=== PATIENT | male | born 1980 | race Caucasian/White ===

== ENCOUNTER 2022-01-03 21:13 | Emergency (ER) | payer OTHER ==
[~2022-01-03] VITALS: Ht 167.6 cm; Wt 80.0 kg
[2022-01-03 21:23] VITALS: BP 129/84
--- NOTE | 2022-01-03 21:56 | PHYS DOC ---
Past History Past Surgical History: No Surgical History General Adult EDM: Chief Complaint: BACK PAIN OR INJURY HPI: HPI: 41-year-old male presents with low back pain. The patient was lifting some light 15 pound weights for his workout today and he started to feel a tweak in his low back. He had increasing pain over the next few hours. It is now moderate to severe tightness and cramping in the low back. He has had problems with low back and hip pain with muscle spasms in the past. He tried diclofenac gel and methocarbamol at home without relief. He recently started physical therapy. Review of Systems: Review of Systems: Constitutional: Denies fever or chills Eyes: Denies change in visual acuity HENT: Denies nasal congestion or sore throat Respiratory: Denies cough or shortness of breath Cardiovascular: Denies chest pain or edema GI: Denies abdominal pain, nausea, vomiting, bloody stools or diarrhea : Denies dysuria Musculoskeletal: Low back pain Integument: Denies rash Neurologic: Denies headache, focal weakness or sensory changes Endocrine: Denies polyuria or polydipsia Lymphatic: Denies swollen glands Psychiatric: Denies depression or anxiety Current Medications: Current Meds: Current Medications Medications (Trade) Dose Ordered Sig/Francisco J Start Time Stop Time Status Last Admin Dose Admin Acetaminophen/ Hydrocodone Bitart (Lortab 7.5/325) 1 tab 1X ONCE 01/03/22 22:30 01/03/22 22:31 Allergies: Allergies: Allergies Coded Allergies Type Severity Reaction Last Updated Verified No Known Drug Allergies 01/03/22 No Physical Exam: PE: Constitutional: Well developed, well nourished, no acute distress, non-toxic appearance. [] HENT: Normocephalic, atraumatic, bilateral external ears normal, oropharynx moist, no oral exudates, nose normal. [] Eyes: PERRLA, EOMI, conjunctiva normal, no discharge. [] Neck: Normal range of motion, no tenderness, supple, no stridor. [] Cardiovascular:Heart rate regular rhythm, no murmur [] Lungs & Thorax: Bilateral breath sounds clear to auscultation [] Abdomen: Bowel sounds normal, soft, no tenderness, no masses, no pulsatile masses. [] Skin: Warm, dry, no erythema, no rash. [] Back: Lumbar paraspinal muscle spasms, tenderness on the right posterior lateral hip [] Extremities: No tenderness, no cyanosis, no clubbing, ROM intact, no edema. [] Neurologic: Alert and oriented X 3, normal motor function, normal sensory function, no focal deficits noted. [] Psychologic: Affect normal, judgement normal, mood normal. [] Current Patient Data: Vital Signs: Vital Signs Date Time Temp Pulse Resp B/P (MAP) Pulse Ox O2 Delivery O2 Flow Rate FiO2 01/03/22 21:23 79 20 129/84 (99) 98 Room Air EKG: EKG: [] Radiology/Procedures: Radiology/Procedures: [] Heart Score: C/O Chest Pain: N/A Risk Factors: Risk Factors: DM, Current or recent (<one month) smoker, HTN, HLP, family history of CAD, obesity. Risk Scores: Score 0 - 3: 2.5% MACE over next 6 weeks - Discharge Home Score 4 - 6: 20.3% MACE over next 6 weeks - Admit for Clinical Observation Score 7 - 10: 72.7% MACE over next 6 weeks - Early Invasive Strategies Course & Med Decision Making: Course & Med Decision Making Pertinent Labs and Imaging studies reviewed. (See chart for details) I have given patient Colon for his pain emergency room. His pain has improved and he is more mobile. I have advised that he continue to take his muscle r elaxer at home. I will give him a short course of Colon for home. He is stable for discharge at this time. [] Dragon Disclaimer: Fernando Disclaimer: This electronic medical record was generated, in whole or in part, using a voice recognition dictation system. Departure Departure: Impression: Primary Impression: Low back pain Disposition: HOME / SELF CARE / HOMELESS Condition: STABLE Referrals: NON,STAFF (PCP) Patient Instructions: Low Back Strain with Rehab-[facility] Scripts Hydrocodone/Acetaminophen (Hydrocodone-Acetamin 5-325 mg) 1 Each Tablet 1 EACH PO Q4-6HRS PRN for PAIN, #10 TAB Prov: ARMANDO CARBONE DO 01/03/22 ARMANDO CARBONE DO Jan 03, 2022 21:56
[2022-01-03] MEDS ORDERED: HYDROcodone/APAP 7.5/325MG 1 TAB TABLET PO ONE (22:30)
[2022-01-03] MEDS ORDERED: HYDR-2759 PO (23:11)
[2022-01-03] MEDS ORDERED: PRED-220 PO (23:24)
[2022-01-03] MEDS ORDERED: predniSONE 20 MG TABLET ONE (23:25)
[2022-01-03] MEDS ORDERED: predniSONE 20 MG TABLET PO ONE (23:45)
[2022-01-03] MEDS ORDERED: HYDROcodone/APAP 5/325MG 1 TAB TABLET PO ONE (23:45)
== END 2022-01-04 00:29 | disposition home or self-care (01) ==
LOC: ER 21:13
DX: M54.59 Other low back pain (principal); M62.830 Muscle spasm of back
CPT/HCPCS: 99284; J7512